=== PATIENT | male | born 1970 | race Caucasian/White ===

== ENCOUNTER 2017-07-28 23:48 | Emergency (ER) | payer BC, SELFPAY ==
[2017-07-28 23:49] VITALS: BP 124/80; PULSE 95; RESP 17; TEMP 36.8; O2SAT 97; BMI 34.3
[2017-07-29] MEDS: Tetracaine 0.5% Ophthalmic Bottle 1 DRP LEFT EYE (01:26)
--- NOTE | 2017-07-29 01:59 | ED.VISSUMM ---
- ER Visit Summary Date of Service: 07/29/17 Chief Complaint: Shortness of breath History of Present Illness: The patient is a 47 M who presents with shortness of breath and cough. He states that he has not felt well since yesterday. He has a history of non-Hodgkin lymphoma and is currently in remission. He had a CT of the chest 2 months ago and incidentally was noted to have pneumonia was treated with antibiotics and improved. He reports now fever of 102.3 at home. He reports congestion rhinorrhea sore throat nonproductive cough nausea vomiting diarrhea and poor oral intake today. Physical Examination: Afebrile pulse ox 94% on 4 L nasal cannula respiratory rate 26 Moist mucous membranes fine heart regular rate and rhythm Scattered inspiratory and expiratory wheezing Abdomen soft Alert Test Results: EKG shows sinus rhythm at a rate of 87. Laboratory studies notable for white blood cell count 17.7, creatinine 1.6. Lactic acid normal. Blood cultures were also sent. Chest x-ray shows no acute disease. Emergency Department Course and Treatment: Patient reports adverse side effects from nebulized aerosols however did agree to one DuoNeb. He did have significant improvement with this. He was given IV Solu-Medrol. Although he has leukocytosis his vitals are stable he is afebrile here and there is no infiltrate on chest x-ray. The patient does have COPD exacerbation. His last creatinine was 0.9. He has an acute kidney injury. He was discussed with hospitalist and admitted. Treatment Plan: [] Disposition: Admit Impression: COPD exacerbation Acute kidney injury This note was generated with Gydget dictation software. It may contain incorrect words, spelling, and punctuation that were not noted in review of the chart prior to signing ED Disposition - Plan for ED Patient: Chief Complaint: Eye Problem Referrals: Sylvester Mejia MD [Primary Care Provider] -
--- NOTE | 2017-07-29 02:07 | ED.VISSUMM ---
- ER Visit Summary Date of Service: 07/29/17 Chief Complaint: Foreign body sensation and left eye pain History of Present Illness: The patient is a 47 M who presents with left eye pain. This occurred 3 days ago. He was putting a lift kit on his symptoms truck and believes he got mud or metal in his left eye. He has had pain burning and light sensitivity since that time. He actually notes that it was worse this morning and is slightly improved currently. He does not use contacts or glasses. He does report blurred vision. He is otherwise without complaint. Physical Examination: Afebrile vitals are unremarkable Visual acuity 20/15 both eyes 20/15 left eye 20/15 right eye Steger extraocular motion intact without pain or palsy There is a visualizable foreign body at the approximately 8 o'clock position of the left cornea Lamp examination shows a rust ring No hyphema or chamber is deep and quiet Heart regular rate and rhythm Lungs are clear Test Results: Not indicated Emergency Department Course and Treatment: Slit-lamp examination does show a rust ring. Removal was attempted with an eye bur but unsuccessful. I spoke to ophthalmology secondary school teacher, Dr. Forrest. The patient was placed on ophthalmic bacitracin and advised to call the office in the morning for follow-up. All questions answered at bedside. Patient understands to return for new or worsening symptoms and was discharged home. Treatment Plan: [] Disposition: Discharge Impression: Rust ring, left eye This note was generated with LIFX dictation software. It may contain incorrect words, spelling, and punctuation that were not noted in review of the chart prior to signing ED Disposition - Plan for ED Patient: Chief Complaint: Eye Problem Referrals: Sylvester Mejia MD [Primary Care Provider] -
--- NOTE | 2017-07-29 02:10 | ED.DCSUM_ITS ---
- ER Visit Summary Date of Service: 07/29/17 Chief Complaint: Foreign body sensation and left eye pain History of Present Illness: The patient is a 47 M who presents with left eye pain. This occurred 3 days ago. He was putting a lift kit on his symptoms truck and believes he got mud or metal in his left eye. He has had pain burning and light sensitivity since that time. He actually notes that it was worse this morning and is slightly improved currently. He does not use contacts or glasses. He does report blurred vision. He is otherwise without complaint. Physical Examination: Afebrile vitals are unremarkable Visual acuity 20/15 both eyes 20/15 left eye 20/15 right eye Gardner extraocular motion intact without pain or palsy There is a visualizable foreign body at the approximately 8 o'clock position of the left cornea Lamp examination shows a rust ring No hyphema or chamber is deep and quiet Heart regular rate and rhythm Lungs are clear Test Results: Not indicated Emergency Department Course and Treatment: Slit-lamp examination does show a rust ring. Removal was attempted with an eye bur but unsuccessful. I spoke to ophthalmology [employer] consultant, Dr. Forrest. The patient was placed on ophthalmic bacitracin and advised to call the office in the morning for follow-up. All questions answered at bedside. Patient understands to return for new or worsening symptoms and was discharged home. Treatment Plan: [] Disposition: Discharge Impression: Rust ring, left eye This note was generated with Proximetry dictation software. It may contain incorrect words, spelling, and punctuation that were not noted in review of the chart prior to signing ED Disposition - Plan for ED Patient: Chief Complaint: Eye Problem Referrals: Sylvester Mejia MD [Primary Care Provider] -
--- NOTE | 2017-07-29 02:10 | ED.DEP ---
ED Disposition - Plan for ED Patient: Chief Complaint: Eye Problem Instructions: ED Foreign Body Cornea W Rust Ring Referrals: Sylvester Mejia MD [Primary Care Provider] - Linden Forrest MD [STAFF PHYSICIAN] -
[2017-07-29 02:25] VITALS: PULSE 77; RESP 17; O2SAT 98
== END 2017-07-29 02:25 | disposition home or self-care (01) ==
PROVIDERS: Emergency Provider Emergency Medicine; Family Provider Family Medicine; PCP Family Medicine
DX: T15.02XA Foreign body in cornea, left eye, initial encounter (principal); X58.XXXA Exposure to other specified factors, initial encounter; Y93.89 Activity, other specified; Y92.9 Unspecified place or not applicable; E11.9 Type 2 diabetes mellitus without complications; Z79.84 Long term (current) use of oral hypoglycemic drugs
CPT/HCPCS: 99283

== ENCOUNTER → 2017-09-26 06:37 | Outpatient (CLI) | payer BC, SELFPAY ==
[2017-09-26 07:34] LABS: Microalbumin,Random Urine 6.7 mg/L (NO RANGE EST.); Microalbumin:Creatinine Ratio 5.8 mg/g CRE (<30 mg/g CRE)
[2017-09-26 07:45] LABS: ALB/GLOB Ratio 1.1 RATIO (0.9-2.4); AST(SGOT) 16 U/L (15-37); Alanine Aminotransfer ALT/SGPT 30 U/L (16-61); Albumin, Serum 3.7 g/dL (3.2-5.0); Alkaline Phosphatase 60 U/L (45-117); Anion Gap 6 (5-15); BUN 12 mg/dL (7-18); BUN/Creat Ratio 14.3 RATIO (10-20); Calcium,Total 8.6 mg/dL (8.5-10.1); Chloride 106 mmol/L (98-107); Cholesterol 158 mg/dL (200); Creatinine, Serum 0.84 mg/dL (0.70-1.30); EST Glomerular Filtration Rate 105 mL/min (>60); Est Glom Filt Rate - Afr Amer 127 mL/min (>60); Globulin 3.3 g/dL (2.2-4.2); Glucose 116 mg/dL (74-106); High Density Lipoprotein 50 mg/dL; Sodium Level 142 mmol/L (136-145); Triglycerides 102 mg/dL; Very Low Density Lipoprotein 20 mg/dL (5-40)
== END ==
PROVIDERS: Family Provider Family Medicine; PCP Family Medicine; Visit Provider Family Medicine
DX: E11.9 Type 2 diabetes mellitus without complications (principal); N52.9 Male erectile dysfunction, unspecified
CPT/HCPCS: 36415; 80053; 80061; 82043; 82570

== ENCOUNTER 2017-11-05 18:02 | Emergency (ER) | payer BC, SELFPAY ==
[2017-11-05 18:03] VITALS: BP 158/80; PULSE 86; RESP 16; TEMP 36.9; O2SAT 98; BMI 34.0
--- NOTE | 2017-11-05 18:07 | NURSING ---
NO OLD EKGS
--- NOTE | 2017-11-05 18:34 | EKG12_ITS ---
Test Reason : CP Blood Pressure : / mmHG Vent. Rate : 076 BPM Atrial Rate : 076 BPM P-R Int : 150 ms QRS Dur : 092 ms QT Int : 350 ms P-R-T Axes : 052 -07 023 degrees QTc Int : 393 ms Normal sinus rhythm with sinus arrhythmia Normal ECG Confirmed by TANVI MAURER ([id number]), legal editor ANITRA HORTON ([id number]) on 11/11/2017 1:40:36 PM Referred By: Confirmed By:TANVI MAURER
--- NOTE | 2017-11-05 18:40 | RAD_ITS ---
STUDY: X-RAY CHEST REASON FOR EXAM: Male, 47 years old. Chest pain TECHNIQUE: Single frontal view COMPARISON: July 18, 2009 FINDINGS: The lungs are clear and expanded. There is no demonstrated pleural abnormality. Normal size heart. Normal mediastinum and yasmeen. Normal visualized pulmonary arteries. Normal visualized aortic arch and descending thoracic aorta. Normal visualized thoracic spine. Normal visualized ribs, clavicles, and shoulders. There is no demonstrated abnormality of the visualized soft tissue structures of the upper abdomen. RAD/Chest 1 View (Portable) IMPRESSION: Normal x-ray examination of the chest. Electronically Signed: Reddy Qureshi DO at 19:11 EDT Tel [phone], Service support ,
--- NOTE | 2017-11-05 18:45 | ED.VISSUMM ---
- ER Visit Summary Date of Service: 11/05/17 Chief Complaint: Epigastric/chest pain History of Present Illness: The patient is a 47 M waxing waning epigastric and chest pain over the past 2 days. Nausea without vomiting. No dyspnea. Mild sweats. No radicular symptoms. Similar symptoms 5 years ago where his workup and ruled out for gallbladder. He had a screening stress test this past March due to history of diabetes. No tobacco history. No family history of MIs young age. Denies hypercholesterolemia or hypertension history. States pain is a 6 currently which is burning and intermittent sharpness. No stool changes. Normal bowel movements. Physical Examination: General: Alert and oriented ?3, no acute distress HEENT: Normocephalic, atraumatic. Moist mucosa membranes Neck: supple, nontender. Cardiovascular: Regular rate and rhythm, no murmurs Respiratory: Normal breath sounds, symmetric, no distress Abdomen: Soft, mild epigastric tenderness without guarding or rebound, nondistended Extremities: Nontender, no edema, pulses intact ?4 Neuro: no focal neurological deficits. Test Results: EKG sinus rate of 76, no ST or T-wave changes. Troponin negative. CBC, BMP, liver enzymes, lipase normal. Chest x-ray negative Emergency Department Course and Treatment: Patient with epigastric discomfort, nonsurgical abdomen. Cardiac workup negative. Abdominal labs also normal. He was given a GI cocktail states there is no improvement, however while in the department states symptoms subsided. He has no melena. States symptoms are radiating across left and right side. Heart scores a 2. VIOLETTA score 0. He has had persistent symptoms for 2 days with negative troponin, less likely cardiac in nature. Discussed with patient we will place on omeprazole, monitor symptoms and follow-up with his PCP. Discussed signs and symptoms return. All questions were answered. Treatment Plan: [] Disposition: Discharge Impression: Atypical chest pain This note was generated with Code Climate dictation software. It may contain incorrect words, spelling, and punctuation that were not noted in review of the chart prior to signing ED Disposition - Plan for ED Patient: Disposition: Home or Assisted Living Chief Complaint: Chest Pain Diagnosis: Atypical chest pain Instructions: ED Chest Pain Atypical Unkn Cause Prescriptions: Omeprazole 40 mg PO DAILY #30 capsule. Referrals: Jennifer Soliz MD [Primary Care Provider] - 3-5 Days
[2017-11-05 18:59] LABS: Absolute Lymphocyte Count 1.68 X10^3/ul (0.83-4.51); Absolute Neutrophil Count 7.4 X10^3/uL (2.0-7.7); Basophil% 0.4 % (0-1); Hematocrit 43.2 % (40-54); Hemoglobin 15.3 g/dl (13.0-16.5); Lymphocyte # 1.68 X10^3/ul (4.0); Lymphocyte % 17.3 % (19-41); Mean Corp Hgb Conc 35.4 g/gl (32-36); Mean Corpuscular Hgb 30.7 pg (27.0-32.0); Mean Corpuscular Volume 86.7 fL (80-94); Mean Platelet Vol. 10.1 fl (6.2-12.0); Monocyte# 0.51 X10^3/uL; Monocyte% 5.3 % (0-10); Neutrophil # 7.35 X10^3/uL (2.7-7.7); Neutrophil % 75.9 % (47-70); POSITIVE COUNT NO; POSITIVE DIFFERENTIAL NO; POSITIVE MORPHOLOGY NO; Platelet Count 279 K/mm3 (150-450); RBC Distribution Width CV 13.1 % (11.6-14.6); RBC Distribution Width SD 40.6 fl (35.1-43.9); Red Blood Count 4.98 M/mm3 (4.6-6.2); White Blood Count 9.7 K/mm3 (4.4-11.0)
[2017-11-05 19:01] LABS: Anion Gap 10 (5-15); BUN 11 mg/dL (7-18); BUN/Creat Ratio 14.3 RATIO (10-20); Calcium,Total 9.2 mg/dL (8.5-10.1); Chloride 105 mmol/L (98-107); Creatinine, Serum 0.77 mg/dL (0.70-1.30); EST Glomerular Filtration Rate 116 mL/min (>60); Est Glom Filt Rate - Afr Amer 140 mL/min (>60); Estimated Creatinine Clearance 129.03 ml/min; Glucose 110 mg/dL (74-106); Potassium 3.8 mmol/L (3.5-5.1); Sodium Level 139 mmol/L (136-145)
[2017-11-05 19:14] LABS: Lipase 163 U/L (73-393)
[2017-11-05] MEDS: Mag Hydrox/Al Hydrox/Simeth 30 ML UDC PO (19:16)
[2017-11-05 19:17] VITALS: BP 139/88; PULSE 78; RESP 14; O2SAT 97
[2017-11-05 19:26] LABS: AST(SGOT) 13 U/L (15-37); Alanine Aminotransfer ALT/SGPT 21 U/L (16-61); Alkaline Phosphatase 62 U/L (45-117); Bilirubin, Direct 0.17 mg/dL (0.00-0.30); Globulin 3.4 g/dL (2.2-4.2); Protein, Total 7.4 g/dL (6.4-8.2)
[2017-11-05 20:52] VITALS: BP 132/92; PULSE 63; RESP 16; O2SAT 94
== END 2017-11-05 20:52 | disposition home or self-care (01) ==
PROVIDERS: Emergency Provider Emergency Medicine; Family Provider Family Medicine; PCP Family Medicine
DX: R07.89 Other chest pain (principal); R11.0 Nausea; R61 Generalized hyperhidrosis; E11.9 Type 2 diabetes mellitus without complications; Z79.84 Long term (current) use of oral hypoglycemic drugs
CPT/HCPCS: 71045; 80048; 80076; 83690; 84484; 85025; 93005; 99285; A4216

== ENCOUNTER → 2018-11-10 06:56 | Outpatient (CLI) | payer BC, SELFPAY ==
[2018-11-10 07:56] LABS: ALB/GLOB Ratio 1.1 RATIO (0.9-2.4); AST(SGOT) 13 U/L (15-37); Alanine Aminotransfer ALT/SGPT 25 U/L (16-61); Albumin, Serum 3.7 g/dL (3.2-5.0); Alkaline Phosphatase 64 U/L (45-117); Anion Gap 3 (5-15); BUN 13 mg/dL (7-18); Calcium,Total 8.9 mg/dL (8.5-10.1); Chloride 108 mmol/L (98-107); Cholesterol 181 mg/dL (200); Creatinine, Serum 0.81 mg/dL (0.70-1.30); EST Glomerular Filtration Rate 109 mL/min (>60); Est Glom Filt Rate - Afr Amer 131 mL/min (>60); Globulin 3.3 g/dL (2.2-4.2); Glucose 137 mg/dL (74-106); High Density Lipoprotein 41 mg/dL; Potassium 4.3 mmol/L (3.5-5.1); Sodium Level 140 mmol/L (136-145); Triglycerides 234 mg/dL; Very Low Density Lipoprotein 47 mg/dL (5-40)
[2018-11-10 08:00] LABS: Microalbumin,Random Urine < 5.0 mg/L (NO RANGE EST.)
== END ==
PROVIDERS: Family Provider Family Medicine; PCP Family Medicine; Referring Provider Family Medicine; Visit Provider Family Medicine
DX: E11.9 Type 2 diabetes mellitus without complications (principal)
CPT/HCPCS: 36415; 80053; 80061; 82043; 82570

== ENCOUNTER → 2019-08-07 10:28 | Outpatient (CLI) | payer BC, SELFPAY ==
[2019-08-07 10:55] LABS: Erythrocyte Sedimentation Rate 5 mm/hr (0-15)
[2019-08-07 11:12] LABS: CRP < 2.90 mg/L (0.0-3.0); Rheumatoid Factor < 10.0 IU/mL (<15)
[2019-08-09 13:13] LABS: ANTINUCLEAR ANTIBODIES DIRECT Negative (Negative)
[2019-08-10 06:07] LABS: CCP IgG Antibodies 14 units (0-19)
== END ==
PROVIDERS: PCP Family Medicine; Referring Provider Family Medicine; Visit Provider Family Medicine
DX: M13.0 Polyarthritis, unspecified (principal)
CPT/HCPCS: 36415; 85652; 86038; 86140; 86200; 86431

== ENCOUNTER → 2019-12-10 06:08 | Outpatient (CLI) | payer BC, SELFPAY ==
[2019-12-10 07:25] LABS: Erythrocyte Sedimentation Rate 1 mm/hr (0-15)
[2019-12-10 13:04] LABS: CRP 4.21 mg/L (0.0-3.0); Rheumatoid Factor < 10.0 IU/mL (<15)
[2019-12-12 21:54] LABS: CCP IgG Antibodies 31 units (0-19)
[2019-12-13 18:08] LABS: ANTINUCLEAR ANTIBODIES DIRECT Negative (Negative)
== END ==
PROVIDERS: PCP Family Medicine; Referring Provider Family Medicine; Visit Provider Family Medicine
DX: M13.0 Polyarthritis, unspecified (principal)
CPT/HCPCS: 36415; 85652; 86038; 86140; 86200; 86431

== ENCOUNTER → 2020-01-15 08:39 | Outpatient (CLI) | payer BC, SELFPAY ==
[2020-01-15 09:23] LABS: ALB/GLOB Ratio 1.1 RATIO (0.9-2.4); AST(SGOT) 16 U/L (15-37); Alanine Aminotransfer ALT/SGPT 44 U/L (16-61); Albumin, Serum 3.8 g/dL (3.2-5.0); Alkaline Phosphatase 65 U/L (45-117); Anion Gap 5 (5-15); BUN 12 mg/dL (7-18); BUN/Creat Ratio 12.4 RATIO (10-20); Calcium,Total 8.9 mg/dL (8.5-10.1); Chloride 107 mmol/L (98-107); Cholesterol 174 mg/dL (200); Creatinine, Serum 0.97 mg/dL (0.70-1.30); EST Glomerular Filtration Rate 88 mL/min (>60); Est Glom Filt Rate - Afr Amer 107 mL/min (>60); Globulin 3.4 g/dL (2.2-4.2); Glucose 149 mg/dL (74-106); High Density Lipoprotein 46 mg/dL; Potassium 4.6 mmol/L (3.5-5.1); Protein, Total 7.2 g/dL (6.4-8.2); Sodium Level 139 mmol/L (136-145); Triglycerides 90 mg/dL; Very Low Density Lipoprotein 18 mg/dL (5-40)
[2020-01-15 09:30] LABS: Microalbumin,Random Urine 11.1 mg/L (NO RANGE EST.); Microalbumin:Creatinine Ratio 7.6 mg/g CRE (<30 mg/g CRE)
== END ==
PROVIDERS: PCP Family Medicine; Referring Provider Family Medicine; Visit Provider Family Medicine
DX: E11.9 Type 2 diabetes mellitus without complications (principal)
CPT/HCPCS: 36415; 80053; 80061; 82043; 82570

== ENCOUNTER → 2020-10-23 | Outpatient (CLI) | payer BC, SELFPAY | END | disposition home or self-care (01) | PROVIDERS: PCP Family Medicine; Referring Provider Physician Assistant Surgical; Visit Provider Physician Assistant Surgical | DX: R09.81 Nasal congestion (principal) | CPT/HCPCS: 87635; U0005; U0003 ==

== ENCOUNTER → 2022-07-30 | Outpatient (CLI) | payer OTHER, SELFPAY ==
[2022-07-30 15:03] LABS: Absolute Lymphocyte Count 1.53 X10^3/uL (0.83-4.51); Absolute Neutrophil Count 4.5 X10^3/uL (2.0-7.7); Basophil# 0.06 X10^3/uL; Basophil% 0.9 % (0-1); Eosinophil# 0.08 X10^3/uL; Eosinophils% 1.2 % (0-5); Hematocrit 44.4 % (40-54); Hemoglobin 14.5 g/dL (13.0-16.5); Lymphocyte # 1.53 X10^3/ul (0.83-4.51); Lymphocyte % 23.5 % (19-41); Mean Corp Hgb Conc 32.7 g/dL (32-36); Mean Corpuscular Hgb 29.5 pg (27.0-32.0); Mean Corpuscular Volume 90.4 fL (80-94); Mean Platelet Vol. 10.5 fl (6.2-12.0); Monocyte# 0.37 X10^3/uL; Monocyte% 5.7 % (0-10); NRBC Flagged by Analyzer 0 % (0-5); Neutrophil # 4.47 X10^3/uL (2.7-7.7); Neutrophil % 68.5 % (47-70); Platelet Count 338 K/mm3 (150-450); RBC Distribution Width CV 12.6 % (11.6-14.6); RBC Distribution Width SD 41.4 fl (35.1-43.9); Red Blood Count 4.91 M/mm3 (4.6-6.2); White Blood Count 6.5 K/mm3 (4.4-11.0)
[2022-07-30 15:25] LABS: AST(SGOT) 17 U/L (15-37); Alanine Aminotransfer ALT/SGPT 32 U/L (16-61); Albumin, Serum 3.6 g/dL (3.2-5.0); Alkaline Phosphatase 66 U/L (45-117); Anion Gap 7 (5-15); BUN 14 mg/dL (7-18); BUN/Creat Ratio 17.6 RATIO (10-20); Calcium,Total 8.9 mg/dL (8.5-10.1); Chloride 104 mmol/L (98-107); Cholesterol 151 mg/dL (200); EST Glomerular Filtration Rate 109 mL/min (>60); Est Glom Filt Rate - Afr Amer 132 mL/min (>60); Globulin 3.5 g/dL (2.2-4.2); Glucose 217 mg/dL (74-106); High Density Lipoprotein 43 mg/dL; Potassium 4.3 mmol/L (3.5-5.1); Protein, Total 7.1 g/dL (6.4-8.2); Sodium Level 137 mmol/L (136-145); Triglycerides 83 mg/dL; Very Low Density Lipoprotein 17 mg/dL (5-40)
[2022-07-30 15:42] LABS: Microalbumin,Random Urine 12.7 mg/L (NO RANGE EST.); Microalbumin:Creatinine Ratio 10.9 mg/g CRE (<30 mg/g CRE)
== END | disposition home or self-care (01) ==
LOC: BFHLAB 11:38
PROVIDERS: PCP Family Medicine; Referring Provider Family Medicine; Visit Provider Family Medicine
DX: E11.9 Type 2 diabetes mellitus without complications (principal)
CPT/HCPCS: 36415; 80053; 80061; 82043; 82570; 85025

== ENCOUNTER 2023-05-22 06:57 | Day surgery (SDC) | payer OTHER, SELFPAY ==
[2023-05-22] MEDS: Lactated Ringers 1,000 ML 15 ML IV (07:23)
[2023-05-22 07:25] VITALS: BP 112/83; PULSE 85; RESP 18; TEMP 35.7; O2SAT 100; BMI 34.5
[2023-05-22 07:49] LABS: Bedside Glucose 122 mg/dL (74-106)
--- NOTE | 2023-05-22 08:00 | COLBX_PTH ---
PATIENT: NORA SALGUERO LOC: EN U#:[id number] AGE/SX: 53/M ROOM: RE05/22/[address]: Dr. Ifeanyi Santos DO : 1970 BED: DIS: 05/22/2023 SPEC #: [id number] RECD: 05/22/23 13:27 STATUS: PINKY GLYNN #: [id number] TAYLER: 05/22/23 08:[address]: Ifeanyi Santos DEPT: SURGICAL PATHOLOGY RECD BY: Erika Yo ENTERED: 05/22/23 13:48 SP TYPE: COLON BX OTHR DR: Dr. Jennifer Soliz MD Tissues: Rectum, NOS Procedures: Surgery Specimen Level IV HEADER OPERATION: Colonoscopy- open access polypectomy PRE-OP DIAGNOSIS: Encounter for screening for malignant neoplasm of colon TISSUE SUBMITTED: Rectal polyp MICROSCOPIC DIAGNOSIS Rectal polyp, polypectomy; Hyperplastic polyp with cautery artifacts. MADISON/mr 05/23/2023 MICROSCOPIC DESCRIPTION Slides are reviewed. GROSS DESCRIPTION Received in fixative is one container labeled with the patient's name and designated Rectal polyp. The specimen consists of one irregular fragment of light garcia soft tissue that measures 0.3 x 0.3 x 0.1 cm. Also a few fragments of fecal material are also noted. The specimen is totally submitted in one cassette. MADISON/ 05/22/23 TC:1 CPT: 73977
--- NOTE | 2023-05-22 08:23 | PCM.HP.STD ---
[facility] - General General Date of Admission: 05/22/23 Date of Service: 05/22/23 Chief Complaint: Screening colonoscopy HPI Narrative NORA SALGUERO, is a 53 M who presents today for screening colonoscopy. He has never had a colonoscopy in the past. His father has Crohn's disease. He does have a past medical history of diabetes and metabolic syndrome. He takes Celebrex, fluticasone, Vyvanse and metformin. [facility] Medical History (Updated 05/20/23 @ 12:24 by Figueroa Vinson) Acute bronchitis, unspecified ADHD, adult residual type Arthritis Diabetes Former smoker Right lateral epicondylitis Wears dentures Home Medications lisdexamfetamine 50 mg capsule (Vyvanse) 60 mg PO DAILY 07/28/17 [History Last Taken 05/21/23] celecoxib 200 mg capsule 200 mg PO DAILY 05/01/23 [History Last Taken 05/21/23] dulaglutide 0.75 mg/0.5 mL subcutaneous pen injector (Trulicity) 0.75 mg subcut QWEEK 05/01/23 [History Last Taken 05/18/23] fluticasone propionate 50 mcg/actuation blister powder for inhalation 1 inh inhalation BID PRN SOB 05/01/23 [History Last Taken Unknown] metformin 500 mg tablet 1,000 mg PO BID 05/01/23 [History Last Taken 05/21/23] sildenafil 100 mg tablet 100 mg PO DAILY PRN sexual activity 05/01/23 [History Last Taken Unknown] Allergy/AdvReac Type Severity Reaction Status Date / Time No Known Allergies Allergy Verified 05/22/23 07:22 Family History (Updated 05/01/23 @ 08:35 by Penny Garcia) Father Crohn's disease CVA (cerebral vascular accident) Grandfather Bone cancer Other Cancer Heart disease Hypertension Social History (Updated 05/01/23 @ 08:41 by Penny Garcia) household members: spouse current occupational status: employed current occupation: [employer] [place] Smoking Status: Former smoker Smokeless tobacco user: snuff alcohol intake: current alcohol intake frequency: a few times a week substance use type: does not use ROS Review of Systems ROS Unobtainable: other Constitutional Constitutional: Denies fatigue, fever(s), poor appetite, weight gain or weight loss ENT HEENT: Denies mouth lesions Cardiovascular Cardiovascular: Denies abdominal bloating, abdominal edema or abdominal pain Respiratory/Chest Respiratory/Chest: Denies change in mental status, change in phlegm color, chest congestion or chest tightness Gastrointestinal Gastrointestinal: Denies belching, bloating, change in bowel habits, change in stool character, chewing difficulty, coffee ground emesis, constipation, cramping, diarrhea, dyspepsia, dysphagia, early satiety, excessive flatus, fecal incontinence, heartburn, hematemesis, hematochezia, hemorrhoids, loose stools, melena, nausea, odynophagia, rectal bleeding, tenesmus, vomiting or weight changes Genitourinary Genitourinary: Denies abdominal discomfort, burning urination or itching Musculoskeletal Musculoskeletal: Reports as per HPI; Denies muscle weakness or myalgias Integumentary Integumentary: Denies jaundice Neurologic Neurologic: Denies lack of coordination or weakness Psychiatric Psychiatric: Denies confusion, depression, memory loss, mood swings, paranoia or suicidal ideation Endocrine Endocrinology: Denies systems reviewed and no addt'l complaints, except as documented Hematologic/Lymphatic Hematologic/Lymphatic: Denies anemia, easy bleeding, easy bruising or lymphadenopathy Allergic/Immunologic Allergic/Immunologic: Denies systems reviewed and no addt'l complaints, except as documented Vital Signs Vital Signs Vital Signs: 05/22/23 07:25 05/22/23 07:25 Temperature 96.3 F L Temperature Source Temporal Pulse Rate 85 Respiratory Rate 18 Respiratory Pattern Normal Blood Pressure 112/83 H Blood Pressure Mean 92 Blood Pressure Source Monitor Blood Pressure Position Semi-Fowlers Blood Pressure Location Left Arm Pulse Ox 100 Oxygen Delivery Method Room Air Weight Weight: 248 lb Body Mass Index (BMI) 34.5 Physical Exam Const alert General Appearance: cooperative Orientation / Consciousness: oriented to person HEENT hearing grossly normal bilaterally Head and Scalp: normal to inspection Face and Sinus: face symmetric Nose: external nose normal Mouth: oral and palatal mucosa normal Eyes conjunctivae normal General Eye: normal appearance of both eyes Neck full ROM General: normal visual inspection Lymph Lymphatic: no lymphadenopathy noted Chest inspection of chest normal and palpation of chest normal Chest: symmetrical chest wall rise Resp normal respiratory effort Effort and Inspection: able to speak in complete sentences Cardio regular rate GI non-distended Percussion: normal to percussion Rectal Exam: deferred Neuro Speech: speech normal Gait (Neuro): normal gait Results Lab / Micro Data Labs: Laboratory Results - last 24 hr 05/22/23 07:14: POC Glucose 122 H Assessment & Plan Assessment/Plan (1) Encounter for screening for malignant neoplasm of colon: PLAN: He was explained alternatives, risk, benefits including not withstanding bleeding, infection, sepsis, perforation, need for emergent surgery and . He will have an ASA of 3.
[2023-05-22 08:53] VITALS: BP 101/65; BP 112/83; PULSE 70; RESP 16; TEMP 36.5; O2SAT 97
[2023-05-22 08:55] VITALS: BP 109/57; BP 112/83; PULSE 66; RESP 16; O2SAT 95
[2023-05-22 09:00] VITALS: BP 112/83; BP 97/62; PULSE 67; RESP 16; O2SAT 96
--- NOTE | 2023-05-22 09:00 | OP.COLON_ITS ---
Patient Name: Eric Figueroa Procedure Date: 05/22/2023 8:26 AM Date of : 1970 Age: 53 Procedure: Colonoscopy Indications: Screening for colorectal malignant neoplasm Providers: Ifeanyi Santos DO Medicines: Propofol per Anesthesia Patient Profile: This is a 53 year old male. Refer to note in patient chart for documentation of history and physical. Last Colonoscopy: none. The patient's first colonoscopy is today. Complications: No immediate complications. Procedure: Pre-Anesthesia Assessment: - Prior to the procedure, a History and Physical was performed, and patient medications and allergies were reviewed. The patient is competent. The risks and benefits of the procedure and the sedation options and risks were discussed with the patient. All questions were answered and informed consent was obtained. Patient identification and proposed procedure were verified by the physician. Mental Status Examination: normal. Prophylactic Antibiotics: The patient does not require prophylactic antibiotics. Prior Anticoagulants: The patient has taken no anticoagulant or antiplatelet agents. ASA Grade Assessment: II - A patient with mild systemic disease. After reviewing the risks and benefits, the patient was deemed in satisfactory condition to undergo the procedure. The anesthesia plan was to use monitored anesthesia care (MAC). Immediately prior to administration of medications, the patient was re-assessed for adequacy to receive sedatives. The heart rate, respiratory rate, oxygen saturations, blood pressure, adequacy of pulmonary ventilation, and response to care were monitored throughout the procedure. The physical status of the patient was re-assessed after the procedure. After I obtained informed consent, the scope was passed under direct vision. Throughout the procedure, the patient's blood pressure, pulse, and oxygen saturations were monitored continuously. The Colonoscope was introduced through the anus and advanced to the terminal ileum. The colonoscopy was performed without difficulty. The patient tolerated the procedure well. The quality of the bowel preparation was adequate. The terminal ileum, ileocecal valve, appendiceal orifice, and rectum were photographed. Scope In: 8:33:55 AM Scope Withdrawal Time 0 hours 10 minutes 33 seconds Scope Out: 8:47:12 AM Total Procedure Duration Time 0 hours 13 minutes 17 seconds Findings: The perianal and digital rectal examinations were normal. A few small-mouthed diverticula were found in the recto-sigmoid colon and sigmoid colon. An 8 mm polyp was found in the rectum. The polyp was sessile. The polyp was removed with a hot snare. Resection and retrieval were complete. Verification of patient identification for the specimen was done. Estimated blood loss was minimal. Impression: - Diverticulosis in the recto-sigmoid colon and in the sigmoid colon. - One 8 mm polyp in the rectum, removed with a hot snare. Resected and retrieved. Recommendation: - Repeat colonoscopy in 5 years for surveillance. - Continue present medications. Procedure Code(s): --- Professional --- 73996, Colonoscopy, flexible; with removal of tumor(s), polyp(s), or other lesion(s) by snare technique CPT copyright 2021 [employer]. All rights reserved. The codes documented in this report are preliminary and upon c software engineer review may be revised to meet current compliance requirements. Ifeanyi Santos DO 05/22/2023 8:59:16 AM This report has been signed electronically. Number of Addenda: 0 Note Initiated On: 05/22/2023 8:26 AM
--- NOTE | 2023-05-22 09:00 | OP.CCLET_ITS ---
05/22/2023 Jennifer Soliz [place] [id number] [address] Re : Colonoscopy procedure for Eric Figueroa Dear Dr. Soliz This procedure was performed on May. My impressions and recommendations are as follows: Impressions : - Diverticulosis in the recto-sigmoid colon and in the sigmoid colon. - One 8 mm polyp in the rectum, removed with a hot snare. Resected and retrieved. Recommendations : - Repeat colonoscopy in 5 years for surveillance. - Continue present medications. My findings are described in the full procedure note, which is enclosed. If I can be of further assistance, please feel free to contact me at . Sincerely, Ifeanyi Santos, 05/22/2023 8:59:16 AM This report has been signed electronically.
[2023-05-22 09:15] VITALS: BP 104/77; BP 112/83; PULSE 90; RESP 16; TEMP 36.4; O2SAT 98
[2023-05-22 09:33] VITALS: BP 112/83
== END 2023-05-22 09:38 | disposition home or self-care (01) ==
LOC: EN 06:59 → AC 07:01
PROVIDERS: PCP Family Medicine; Referring Provider Internal Medicine Gastroenterology; Visit Provider Internal Medicine Gastroenterology
PROC: 0DJD8ZZ Inspection of Lower Intestinal Tract, Via Natural or Artificial Opening Endoscopic (ICD-10-PCS; CPT 45378; principal; 2023-05-22 07:55)
DX: Z12.11 Encounter for screening for malignant neoplasm of colon (principal); E11.9 Type 2 diabetes mellitus without complications; F90.9 Attention-deficit hyperactivity disorder, unspecified type; Z87.891 Personal history of nicotine dependence; Z79.84 Long term (current) use of oral hypoglycemic drugs; K62.1 Rectal polyp; K57.30 Diverticulosis of large intestine without perforation or abscess without bleeding; Z79.899 Other long term (current) drug therapy
CPT/HCPCS: 45385; 82962; 88305; J2405

== ENCOUNTER → 2023-07-29 | Outpatient (CLI) | payer OTHER, SELFPAY ==
[2023-07-29 08:19] LABS: Absolute Lymphocyte Count 1.93 X10^3/uL (0.83-4.51); Absolute Neutrophil Count 3.8 X10^3/uL (2.0-7.7); Basophil# 0.06 X10^3/uL; Basophil% 0.9 % (0-1); Eosinophil# 0.17 X10^3/uL; Eosinophils% 2.7 % (0-5); Hematocrit 43.9 % (40-54); Hemoglobin 14.9 g/dL (13.0-16.5); Lymphocyte # 1.93 X10^3/ul (0.83-4.51); Lymphocyte % 30.3 % (19-41); Mean Corp Hgb Conc 33.9 g/dL (32-36); Mean Corpuscular Hgb 30.3 pg (27.0-32.0); Mean Corpuscular Volume 89.2 fL (80-94); Mean Platelet Vol. 10.2 fl (6.2-12.0); Monocyte% 6.3 % (0-10); NRBC Flagged by Analyzer 0 % (0-5); Neutrophil # 3.79 X10^3/uL (2.7-7.7); Neutrophil % 59.5 % (47-70); Platelet Count 288 K/mm3 (150-450); RBC Distribution Width CV 12.8 % (11.6-14.6); RBC Distribution Width SD 41.8 fl (35.1-43.9); Red Blood Count 4.92 M/mm3 (4.6-6.2); White Blood Count 6.4 K/mm3 (4.4-11.0)
[2023-07-29 09:12] LABS: ALB/GLOB Ratio 1.2 RATIO (0.9-2.4); AST(SGOT) 17 U/L (15-37); Alanine Aminotransfer ALT/SGPT 27 U/L (16-61); Albumin, Serum 3.6 g/dL (3.2-5.0); Alkaline Phosphatase 55 U/L (45-117); Anion Gap 8 (5-15); BUN 12 mg/dL (7-18); BUN/Creat Ratio 15.5 RATIO (10-20); Calcium,Total 8.7 mg/dL (8.5-10.1); Chloride 109 mmol/L (98-107); Cholesterol 158 mg/dL (200); Creatinine, Serum 0.78 mg/dL (0.70-1.30); EST Glomerular Filtration Rate 112 mL/min (>60); Est Glom Filt Rate - Afr Amer 136 mL/min (>60); Glucose 133 mg/dL (74-106); High Density Lipoprotein 42 mg/dL; PSA,Total - Annual Screen 1.35 ng/mL (0.00-4.00); Protein, Total 6.6 g/dL (6.4-8.2); Sodium Level 139 mmol/L (136-145); Triglycerides 105 mg/dL; Very Low Density Lipoprotein 21 mg/dL (5-40)
== END | disposition home or self-care (01) ==
LOC: LAB 07:30
PROVIDERS: PCP Family Medicine; Referring Provider Nurse Practitioner Family; Visit Provider Nurse Practitioner Family
DX: Z00.01 Encounter for general adult medical examination with abnormal findings (principal); Z12.5 Encounter for screening for malignant neoplasm of prostate
CPT/HCPCS: 36415; 80053; 80061; 84153; 85025; G0103

== ENCOUNTER → 2024-07-10 | Outpatient (CLI) | payer OTHER, SELFPAY ==
[2024-07-10 10:31] LABS: Microalbumin,Random Urine < 12.0 mg/L (NO RANGE EST.); Microalbumin:Creatinine Ratio UNABLE TO CALCULATE mg/g CRE
[2024-07-10 10:33] LABS: Absolute Lymphocyte Count 1.76 X10^3/uL (0.83-4.51); Absolute Neutrophil Count 3.4 X10^3/uL (2.0-7.7); Basophil# 0.06 X10^3/uL; Basophil% 0.9 % (0-1); Eosinophil# 1.07 X10^3/uL; Eosinophils% 16.1 % (0-5); Hematocrit 42.2 % (40-54); Hemoglobin 14.6 g/dL (13.0-16.5); Lymphocyte # 1.76 X10^3/ul (0.83-4.51); Lymphocyte % 26.5 % (19-41); Mean Corp Hgb Conc 34.6 g/dL (32-36); Mean Corpuscular Hgb 30.4 pg (27.0-32.0); Mean Corpuscular Volume 87.7 fL (80-94); Mean Platelet Vol. 10.5 fl (6.2-12.0); Monocyte# 0.37 X10^3/uL; Monocyte% 5.6 % (0-10); NRBC Flagged by Analyzer 0 % (0-5); Neutrophil # 3.37 X10^3/uL (2.7-7.7); Neutrophil % 50.6 % (47-70); Platelet Count 275 K/mm3 (150-450); RBC Distribution Width CV 12.8 % (11.6-14.6); RBC Distribution Width SD 41.5 fl (35.1-43.9); Red Blood Count 4.81 M/mm3 (4.6-6.2); White Blood Count 6.7 K/mm3 (4.4-11.0)
[2024-07-10 11:31] LABS: ALB/GLOB Ratio 1.8 RATIO (0.9-2.4); AST(SGOT) 16 U/L (<=37); Alanine Aminotransfer ALT/SGPT 17 U/L (<=46); Albumin, Serum 4.2 g/dL (3.5-5.0); Alkaline Phosphatase 68 U/L (40-129); Anion Gap 10 (5-15); BUN 15 mg/dL (4-19); BUN/Creat Ratio 19.9 RATIO (10-20); Calcium,Total 9.4 mg/dL (7.6-11.0); Carbon Dioxide 26.2 mmol/L (21.0-32.0); Chloride 102 mmol/L (98-108); Cholesterol 165 mg/dL (<=200); Creatinine, Serum 0.74 mg/dL (0.70-1.20); EST Glomerular Filtration Rate 109 (>60); Globulin 2.4 g/dL (2.2-4.2); Glucose 186 mg/dL (70-99); High Density Lipoprotein 49 mg/dL; Lipase 29 U/L (13-75); Low Density Lipoprotein Calc. 100 mg/dL; Potassium 4.5 mmol/L (3.3-5.1); Protein, Total 6.5 g/dL (5.9-8.4); Sodium Level 138 mmol/L (133-145); Total Bilirubin 0.51 mg/dL (0.00-1.30); Triglycerides 76 mg/dL; Very Low Density Lipoprotein 15 mg/dL (5-40); cholesterol:hdl ratio screen 3.34
== END | disposition home or self-care (01) ==
LOC: LAB 09:20
PROVIDERS: PCP Family Medicine; Referring Provider Family Medicine; Visit Provider Family Medicine
DX: Z00.01 Encounter for general adult medical examination with abnormal findings (principal); E11.9 Type 2 diabetes mellitus without complications; K80.50 Calculus of bile duct without cholangitis or cholecystitis without obstruction
CPT/HCPCS: 36415; 80053; 80061; 82043; 82570; 83690; 85025

== ENCOUNTER → 2024-07-29 | Outpatient (CLI) | payer OTHER, SELFPAY ==
--- NOTE | 2024-07-29 07:10 | US_ITS ---
PROCEDURE: ABDOMEN LIMITED 07/29/2024 REASON FOR EXAM: RUQ ABD PAIN POST PRANDIAL TECHNIQUE: Complete abdominal ultrasound dsouza-scale images with color doppler. PATIENT PREPARATION: Per protocol COMPARISON: None FINDINGS: Liver: Hepatomegaly to 17 cm. Increased in echogenicity. Gallbladder: No gallstone. No gallbladder wall thickening. No pericholecystic fluid. Negative Muro's sign. Common bile duct: Measures 5 mm. No intrahepatic biliary dilatation. . Pancreas: Unremarkable Kidneys: The right kidney measures measures 12.7 cm. Normal in echogenicity and size US/Abdomen Limited IMPRESSION: Hepatic steatosis. Hepatomegaly. No acute cholecystitis. Reading Location: [id number]
== END | disposition home or self-care (01) ==
PROVIDERS: PCP Family Medicine; Referring Provider Family Medicine; Visit Provider Family Medicine
DX: R10.11 Right upper quadrant pain (principal)
CPT/HCPCS: 76705